=== PATIENT | male | born 1980 | race African-American/Black ===

== ENCOUNTER 2017-03-19 16:17 | Emergency (ER) | payer SELFPAY ==
[~2017-03-19] VITALS: Ht 170.2 cm; Wt 81.6 kg
[2017-03-19 16:28] VITALS: BP 130/78
--- NOTE | 2017-03-19 17:05 | PHYS DOC ---
Past Medical History Past Medical History: GERD Past Surgical History: No Surgical History Alcohol Use: None Drug Use: None Adult General Chief Complaint Chief Complaint: RECTAL BLEED HPI HPI Patient is a 36 year old male who presents with light rectal bleeding for the past 1 week some slight nausea no vomiting or diarrhea. Denies any recent antibiotic use. Denies any dysuria or frequency or flank pain. Denies any chest pain shortness of breath or abdominal pain. Denies history of diabetes Review of Systems Review of Systems Constitutional: Denies fever or chills [] Eyes: Denies change in visual acuity, redness, or eye pain [] HENT: Denies nasal congestion or sore throat [] Respiratory: Denies cough or shortness of breath [] Cardiovascular: No additional information not addressed in HPI [] GI: Denies abdominal pain, nausea, vomiting, bloody stools or diarrhea [] : Denies dysuria or hematuria [] Musculoskeletal: Denies back pain or joint pain [] Integument: Denies rash or skin lesions [] Neurologic: Denies headache, focal weakness or sensory changes [] Endocrine: Denies polyuria or polydipsia [] Allergies Allergies Allergies Coded Allergies Type Severity Reaction Last Updated Verified No Known Drug Allergies 01/17/16 No Physical Exam Physical Exam Constitutional: Well developed, well nourished, no acute distress, non-toxic appearance. [] HENT: Normocephalic, atraumatic, bilateral external ears normal, oropharynx moist, no oral exudates, nose normal. [] Eyes: PERRLA, EOMI, conjunctiva normal, no discharge. [] Neck: Normal range of motion, no tenderness, supple, no stridor. [] Cardiovascular:Heart rate regular rhythm, no murmur [] Lungs & Thorax: Bilateral breath sounds clear to auscultation [] Abdomen: Bowel sounds normal, soft, no tenderness, no masses, no pulsatile masses. [] Skin: Warm, dry, no erythema, no rash. [] Back: No tenderness, no CVA tenderness. [] Extremities: No tenderness, no cyanosis, no clubbing, ROM intact, no edema. [] Neurologic: Alert and oriented X 3, normal motor function, normal sensory function, no focal deficits noted. [] Psychologic: Affect normal, judgement normal, mood normal. Rectal exam: External exam shows no hemorrhoids, digital rectal exam no masses or hemorrhoids palpable, guaiac card was obtained [] Current Patient Data Vital Signs Vital Signs Date Time Temp Pulse Resp B/P (MAP) Pulse Ox O2 Delivery O2 Flow Rate FiO2 03/19/17 16:28 98.6 79 18 130/78 (95) 96 Room Air 98.6 Lab Values Laboratory Tests Test 03/19/17 16:52 Stool Occult Blood Positive (NEG) EKG EKG [] Radiology/Procedures Radiology/Procedures [] Course & Med Decision Making Course & Med Decision Making Pertinent Labs and Imaging studies reviewed. (See chart for details) Accu-Chek was 98. Patient is otherwise stable for outpatient evaluation for this problem including a referral for colonoscopy and I have recommended to the patient. [We will treat empirically for possible colitis as the cause of his trace rectal bleeding with Flagyl but again needs follow-up and referral for colonoscopy.] Dragon Disclaimer Dragon Disclaimer This electronic medical record was generated, in whole or in part, using a voice recognition dictation system. Departure Departure Impression: Primary Impression: Rectal bleeding Disposition: 01 HOME, SELF-CARE Condition: IMPROVED Referrals: NO PCP (PCP) Patient Instructions: Rectal Bleeding, [id number] Scripts Metronidazole (FLAGYL) 500 Mg Tablet 500 MG PO TID for 7 Days, #21 TAB Prov: JOSHUA MARSHALL MD 03/19/17 JOSHUA MARSHALL MD Mar 19, 2017 17:05
[2017-03-19] MEDS ORDERED: METR500T PO (17:07)
[2017-03-19 17:38] LABS: NEG OBC FOB NEG; POS OBC FOB POS
== END 2017-03-19 17:50 | disposition home or self-care (01) ==
LOC: ER 16:17
DX: K62.5 Hemorrhage of anus and rectum (principal); R11.0 Nausea; K21.9 Gastro-esophageal reflux disease without esophagitis
CPT/HCPCS: 82274; 82962; 99283

== ENCOUNTER 2017-04-14 18:28 | Emergency (ER) | payer SELFPAY ==
[~2017-04-14] VITALS: Ht 170.2 cm; Wt 81.6 kg
[~2017-04-14 18:28] MED LIST: METR500T PO
--- NOTE | 2017-04-14 19:12 | PHYS DOC ---
Past Medical History Past Medical History: GERD Past Surgical History: No Surgical History Alcohol Use: None Drug Use: None Adult General Chief Complaint Chief Complaint: SORE THROAT HPI HPI Patient is a 36 year old female presents to the emergency Department stating he 's had a 2 day history of a sore throat. He denies fever, chills or any nausea vomiting. He states that he is unable to swallow. He is not drooling at the current time that he is spitting out his own saliva. Patient states he's has increased difficulty with swallowing. Review of Systems Review of Systems Constitutional: Denies fever or chills [] Eyes: Denies change in visual acuity, redness, or eye pain [] HENT: Denies nasal congestion. Complaint of sore throat [] Respiratory: Denies cough or shortness of breath [] Cardiovascular: No additional information not addressed in HPI [] GI: Denies abdominal pain, nausea, vomiting, bloody stools or diarrhea [] : Denies dysuria or hematuria [] Musculoskeletal: Denies back pain or joint pain [] Integument: Denies rash or skin lesions [] Neurologic: Denies headache, focal weakness or sensory changes [] Endocrine: Denies polyuria or polydipsia [] Current Medications Current Medications Current Medications Medications (Trade) Dose Ordered Sig/Ryanne Start Time Stop Time Status Last Admin Dose Admin Clindamycin Phosphate 50 ml @ 100 mls/hr 1X ONCE 04/14/17 20:45 04/14/17 21:14 DC 04/14/17 20:45 100 MLS/HR Dexamethasone Sodium Phosphate (Decadron) 8 mg 1X ONCE 04/14/17 19:15 04/14/17 19:16 DC 04/14/17 19:15 8 MG Info (Do NOT chart on this entry -- for MONITORING) 1 each PRN DAILY PRN 04/14/17 19:30 04/16/17 19:29 Iohexol (Omnipaque 300 Mg/ml) 75 ml 1X ONCE 04/14/17 19:30 04/14/17 19:31 DC 04/14/17 19:42 75 ML Allergies Allergies Allergies Coded Allergies Type Severity Reaction Last Updated Verified No Known Drug Allergies 01/17/16 No Physical Exam Physical Exam Constitutional: Well developed, well nourished, no acute distress, non-toxic appearance. [] HENT: Normocephalic, atraumatic, bilateral external ears normal, oropharynx moist, no oral exudates, nose normal. Patient with tonsils enlarged but are touching the uvula. Patient was also noted to have exudate with redness on bilateral tonsils. Right tonsil appears to be larger than the left. Patient does have difficulty speaking and does have a hot potato voice. Eyes: PERRLA, EOMI, conjunctiva normal, no discharge. [] Neck: Normal range of motion, no tenderness, supple, no stridor. [] Cardiovascular:Heart rate regular rhythm, no murmur [] Lungs & Thorax: No respiratory distress noted. Skin: Warm, dry, no erythema, no rash. [] Back: No tenderness Extremities: No tenderness, no cyanosis, no clubbing, ROM intact, no edema. [] Neurologic: Alert and oriented X 3, normal motor function, normal sensory function, no focal deficits noted. [] Psychologic: Affect normal, judgement normal, mood normal. [] Current Patient Data Vital Signs Vital Signs Date Time Temp Pulse Resp B/P (MAP) Pulse Ox O2 Delivery O2 Flow Rate FiO2 04/14/17 21:00 86 115/75 (88) 95 Room Air 04/14/17 18:51 98.9 17 98.9 Lab Values Laboratory Tests Test 04/14/17 19:23 04/14/17 19:28 White Blood Count 18.9 x10^3/uL (4.0-11.0) H Red Blood Count 5.43 x10^6/uL (4.30-5.70) Hemoglobin 16.8 g/dL (13.0-17.5) Hematocrit 49.3 % (39.0-53.0) Mean Corpuscular Volume 91 fL (79-100) Mean Corpuscular Hemoglobin 31 pg (25-35) Mean Corpuscular Hemoglobin Concent 34 g/dL (31-37) Red Cell Distribution Width 14.2 % (11.5-14.5) Platelet Count 325 x10^3/uL (140-400) Neutrophils (%) (Auto) 81 % (31-73) H Lymphocytes (%) (Auto) 10 % (24-48) L Monocytes (%) (Auto) 9 % (0-9) Eosinophils (%) (Auto) 1 % (0-3) Basophils (%) (Auto) 0 % (0-3) Neutrophils # (Auto) 15.3 x10^3uL (1.8-7.7) H Lymphocytes # (Auto) 1.8 x10^3/uL (1.0-4.8) Monocytes # (Auto) 1.6 x10^3/uL (0.0-1.1) H Eosinophils # (Auto) 0.1 x10^3/uL (0.0-0.7) Basophils # (Auto) 0.0 x10^3/uL (0.0-0.2) Segmented Neutrophils % 71 % (35-66) H Band Neutrophils % 4 % (0-9) Lymphocytes % 18 % (24-48) L Atypical Lymphocytes % (Manual) 2 % (0-0) H Monocytes % 5 % (0-10) Platelet Estimate Adequate (ADEQUATE) POC Hemoglobin 18.0 g/dL (14-18) POC Hematocrit 53 % (37-52) H POC Sodium 138 mmol/L (135-145) POC Potassium 4.1 mmol/L (3.5-5.0) POC Chloride 99 mmol/L (98-110) POC Total CO2 30 mmol/L (23-32) Anion Gap 15 mmol/L (6-14) H POC Blood Urea Nitrogen 9 mg/dL (8-26) POC Creatinine 1.0 mg/dL (0.5-1.4) Glucose Level 107 mg/dL (70-99) H POC Ionized Calcium (Leonardo) 1.17 mmol/L (1.13-1.32) Laboratory Tests 04/14/17 19:23 Laboratory Tests 04/14/17 19:28 EKG EKG [] Radiology/Procedures Radiology/Procedures [] Course & Med Decision Making Course & Med Decision Making Pertinent Labs and Imaging studies reviewed. (See chart for details) Rapid strep was positive. Patient will be provided with a CT scan as well to rule out peritonsillar abscess. 2024 spoke with [facility] in regards to transfer for this patient. Tiffany spoke with ear nose and throat area regards to this patient being transferred. To the patient not being able to maintain his own saliva they have accepted the patient. Clindamycin 900 mg was given here in the emergency department as well as 8 mg of Decadron. Patient will be transferred to the ER via ambulance due to IV access. Spoke with patient regards to transfer. Patient agrees with transfer at this time. Patient's CT scan has been clouded to [facility] [] Susan Disclaimer Dragon Disclaimer This electronic medical record was generated, in whole or in part, using a voice recognition dictation system. Departure Departure Impression: Primary Impression: Peritonsillar abscess Disposition: 02 TRANSFER [facility] Condition: STABLE Referrals: NO PCP (PCP) AMARIS ROBB [employer] Apr 14, 2017 19:12
[2017-04-14] MEDS ORDERED: DEXAMETHASONE SOD PHOS 4 MG/ML VIAL IV ONE (19:15)
[2017-04-14] MEDS ORDERED: CONTRAST GIVEN MC PRN (19:30)
[2017-04-14] MEDS ORDERED: IOHEXOL 300 MG/ML 75 ML VIAL IV ONE (19:30)
[2017-04-14 19:33] LABS: POTASSIUM ISTAT 4.1 mmol/L (3.5-5.0)
[2017-04-14 19:42] LABS: BASO % 0 % (0-3); EOS % 1 % (0-3); HEMATOCRIT 49.3 % (39.0-53.0); HEMOGLOBIN 16.8 g/dL (13.0-17.5); LYMPH # 1.8 x10^3/uL (1.0-4.8); LYMPH % 10 % (24-48); MEAN CORPUSCULAR HEMOGLOBIN 31 pg (25-35); MEAN CORPUSCULAR HGB CONC 34 g/dL (31-37); MEAN CORPUSCULAR VOLUME 91 fL (79-100); MONO % 9 % (0-9); NEUT % 81 % (31-73); PLATELET COUNT 325 x10^3/uL (140-400); RED BLOOD COUNT 5.43 x10^6/uL (4.30-5.70); RED CELL DISTRIBUTION WIDTH 14.2 % (11.5-14.5); WHITE BLOOD COUNT 18.9 x10^3/uL (4.0-11.0)
--- NOTE | 2017-04-14 20:15 | RAD ---
CT NECK WITH CONTRAST History: Left-sided pain, evaluate for peritonsillar abscess. Comparison: None Technique: Axial helical images of the neck were obtained after the administration of 75 cc IV Omni-300 contrast. Axial coronal and sagittal reconstruction was performed for a CT soft tissues neck with contrast. PQRS compliance statement: One or more of the following individualized dose reduction techniques were utilized for this examination: 1. Automated exposure control 2. Adjustment of the mA and/or kV according to patient size 3. Use of iterative reconstruction technique Findings: There is asymmetric enlargement of the left tonsils with central fluid density present, subcentimeter in size, suggesting some internal fluid. There is soft tissue asymmetry of the left parapharyngeal region extending inferiorly to the level of the hyoid bone which obscures the left vallecula. There is central fluid density also present at the level of the left vallecula measuring up to a centimeter in axial dimension. Otherwise, fat soft tissue planes of the neck are preserved. No significant lymphadenopathy is seen. Prominent bilateral cervical lymph nodes are seen, slightly more prominent on the left, likely reactive in nature. The thyroid appears normal. The parotid and submandibular glands are symmetric. Visualized lung apices demonstrate no acute finding. IMPRESSION: Enlargement and asymmetry of the left tonsils with some central fluid density, extending inferiorly to the level of the vallecula, which may represent early internal abscess formation. Likely reactive cervical lymph nodes. Electronically signed by: Charmaine Llamas MD (04/14/2017 8:12 PM) [facility]
[2017-04-14 20:23] LABS: PLT ESTIMATE ADEQUATE (ADEQUATE)
[2017-04-14] MEDS ORDERED: CLINDAMYCIN 900MG PREMIX 50 ML IV ONE (20:45)
[2017-04-14 21:30] VITALS: BP 138/71
[2017-04-14] MEDS ORDERED: IV NORMAL SALINE 1000ML BAG 1,000 ML IV ONE (22:30)
[2017-04-15 09:08] LABS: NEGATIVE OBC STREP NEG; POSITIVE OBC STREP POS
== END 2017-04-14 22:59 | disposition short-term general hospital (02) ==
LOC: ER 18:28
DX: J36 Peritonsillar abscess (principal); K21.9 Gastro-esophageal reflux disease without esophagitis
CPT/HCPCS: 36415; 70491; 80047; 85007; 85027; 87880; 96361; 96365; 96375; 99285; J1100; J3490; J7030; Q9967